=== PATIENT | female | born 1990 | race Caucasian/White ===

== ENCOUNTER 2025-01-18 05:51 | Emergency (ER) | payer OTHER ==
[~2025-01-18] VITALS: Ht 170.2 cm; Wt 93.2 kg
[2025-01-18 06:32] LABS: COVID AG,FIA SOURCE NASAL SWAB
[2025-01-18 06:37] VITALS: TEMP 98.205296
[2025-01-18 06:55] LABS: INFLUENZA TYPE A NEGATIVE FOR TYPE A (NEGATIVE); INFLUENZA TYPE B NEGATIVE FOR TYPE B (NEGATIVE)
[2025-01-18 06:56] LABS: SARS-COV2 (COVID) ANTIGEN,FIA Negative (Negative)
[2025-01-18] MEDS: FAMOTIDINE 20 MG/2 ML VIAL IVP ONE (07:01)
[2025-01-18] MEDS: ONDANSETRON HCL 4 MG/2 ML VIAL IVP ONE (07:01)
[2025-01-18] MEDS: KETOROLAC TROMETHAMINE 15 MG/ML VIAL IVP ONE (07:02)
[2025-01-18] MEDS: SODIUM CHLORIDE 0.9% 1,000 ML IV ONE (07:03)
[2025-01-18 07:04] LABS: PLATELET COUNT (AUTO) 162 K/uL (150-450); RED BLOOD CELL COUNT(AUTO) 4.22 MIL/uL (4.00-5.20); RED CELL DISTRIBUTION WIDTH 13.7 % (11.5-14.5); WHITE BLOOD COUNT (AUTO) 10.4 K/uL (4.5-11.0)
[2025-01-18 07:12] LABS: CALCIUM, TOTAL 8.7 mg/dL (8.8-10.5); CREATININE 0.52 mg/dL (0.60-1.30); GLOMERULAR FILTR. RATE CALC > 60 mL/min (>60); GLUCOSE,RANDOM 109 mg/dL (70-110); SODIUM SERUM 136 mmol/L (136-145); UREA NITROGEN, BLOOD 6 mg/dL (7-18)
[2025-01-18 07:14] LABS: ASPARTATE AMINOTRANSFERASE 24 U/L (15-37); TOTAL PROTEIN, SERUM 6.7 g/dL (6.4-8.2)
[2025-01-18 07:18] LABS: LACTIC ACID 0.6 mmol/L (0.4-2.0)
[2025-01-18] MEDS ORDERED: 0.9% SODIUM CHLORIDE 10 ML SYRINGE IVP ONE (07:31)
[2025-01-18] MEDS ORDERED: IOHEXOL 300 MG/ML 100 ML VIAL ONE (07:31)
[2025-01-18] MEDS ORDERED: SODIUM CHLORIDE 0.9% 100 ML ONE (07:32)
[2025-01-18 08:12] VITALS: BP 105/66; PULSE 65; RESP 18; O2SAT 99
[2025-01-18] MEDS: AMPICILLIN SODIUM/SULBACTAM NA 3 GM in SODIUM CHLORIDE 0.9% 100 ML IV ONE (08:14)
[2025-01-18] MEDS ORDERED: ONDA-104 PO (08:39)
[2025-01-18] MEDS ORDERED: AMOX-457 PO (08:39)
== END 2025-01-18 08:55 | disposition home or self-care (01) ==
LOC: EMS 05:51
DX: J03.90 Acute tonsillitis, unspecified (principal); Z20.822 Contact with and (suspected) exposure to COVID-19
CPT/HCPCS: 99285; 96365; 70491; 96375; 71045; 87426; 80048; 80076; 83605; 83690; 84703; 85025; 87430; 87804; 36415; J1885; J3490; J2405; J0295; J7030; J7050; Q9967